=== PATIENT | male | born 1970 | race African-American/Black ===

== ENCOUNTER 2024-09-17 00:37 | Day surgery (SDC) | payer OTHER, SELFPAY ==
[2024-09-04 12:18] VITALS: BMI 35.9
[2024-09-17 10:22] VITALS: BP 142/87; PULSE 72; RESP 20; TEMP 36; O2SAT 99; BMI 36.3
--- NOTE | 2024-09-17 10:22 | WPDANESEPPF ---
Anes - Initial Pre Proc Eval Procedure: Operation Date: 09/17/24 11:30 Proposed Procedures p Screening Colonoscopy - Ben Frausto MD Date/Time: 09/17/24 10:22 Surgeon: Ben Frausto MD Pre Op Diagnosis: Encounter for screening for malignant neoplasm of Patient Data Age: 53 Gender: M Height: 1.78 m Weight: 113.4 kg Allergies Allergy/AdvReac Type Severity Reaction Status Date / Time No Known Allergies Allergy Verified 09/17/24 10:21 Home Medications ?Medication ?Instructions ?Recorded ?Confirmed ?Type atorvastatin 20 mg tablet 20 mg PO QPM 09/04/24 09/17/24 History bictegravir 50 mg-emtricitabine 1 tablet PO DAILY 09/04/24 09/17/24 History 200 mg-tenofovir alafenam 25 mg tablet (Biktarvy) lisinopril 20 mg tablet 20 mg PO DAILY 09/04/24 09/17/24 History naproxen 500 mg tablet 500 mg PO Q12H 09/04/24 09/17/24 History Patient hx anesthesia problems: none Family hx anesthesia problems: none Results Review: All pre-operative results and documents have been reviewed as part of the pre-operative evaluation. [facility] Past Medical History Medical History (Updated 09/17/24 @ 10:22 by Orion Taylor MD) Obesity Hyperlipidemia HTN (hypertension) Social History Social History Smoking packs per day: 2 Smoking cigarettes per day: 40.0 Years smoked: 15 Smoking pack-years: 30.00 Smoking status: Former smoker Tobacco type: cigarettes Alcohol intake: never Substance use: never Substance use type: does not use Living arrangements: with family Spiritual care concerns: No Anes - Eval Final PreProcedure Day of Procedure 09/17/24 10:22 Patient weight: obese Heart: regular rate and rhythm Lungs: clear to auscultation Airway: Mallampati scale class II Neurological: alert and oriented Last oral intake: >/= 8 hours ASA classification: III Emergent: no Anesthetic plan: proceed Anesthesia type and monitoring: general GIVS and standard monitoring Results Review: All pre-operative results and documents have been reviewed as part of the pre-operative evaluation. Informed Consent: The patient's anesthetic plan and its attendant risks and benefits were discussed with the patient/family/POA. Questions were solicited and answers provided to the satisfaction of the patient/family/POA.
[2024-09-17] MEDS: LACTATED RINGERS 1,000 ML 150 ML IV CONT (10:38)
--- NOTE | 2024-09-17 11:01 | PM.HPGS ---
History of Present Illness History of Present Illness Consent: Risks, benefits, and alternatives have been discussed and questions answered. Patient agrees to proceed with procedure. Chief complaint: Encounter for screening for malignant neoplasm of Narrative: Avery Zuniga is a 53 year old male here for first screening colonoscopy Review of Systems Review of Systems: All systems reviewed & are unremarkable except as noted in HPI and below PMFSH Past Medical History Medical History (Updated 09/17/24 @ 11:02 by Ben Frausto MD) Colon cancer screening Obesity Hyperlipidemia HTN (hypertension) Social History Social History Smoking packs per day: 2 Smoking cigarettes per day: 40.0 Years smoked: 15 Smoking pack-years: 30.00 Smoking status: Former smoker Tobacco type: cigarettes Alcohol intake: never Substance use: never Substance use type: does not use Living arrangements: with family Spiritual care concerns: No Meds Home Medications and Allergies Home Medications ?Medication ?Instructions ?Recorded ?Confirmed ?Type atorvastatin 20 mg tablet 20 mg PO QPM 09/04/24 09/17/24 History bictegravir 50 mg-emtricitabine 1 tablet PO DAILY 09/04/24 09/17/24 History 200 mg-tenofovir alafenam 25 mg tablet (Biktarvy) lisinopril 20 mg tablet 20 mg PO DAILY 09/04/24 09/17/24 History naproxen 500 mg tablet 500 mg PO Q12H 09/04/24 09/17/24 History Allergies Allergy/AdvReac Type Severity Reaction Status Date / Time No Known Allergies Allergy Verified 09/17/24 10:21 Vital Signs Vital Signs - 24 hr 09/17/24 10:22 Temperature 96.8 F L Pulse Rate 72 Respiratory Rate 20 Blood Pressure 142/87 H Pulse Oximetry 99 Oxygen Delivery Room Air Exam Const: General: comfortable and no acute distress HENMT: Face/Nose/Sinus: Normal nares present Eyes: General: appearance normal, both eyes and all related structures Neck: Neck: no JVD Resp: Auscultation: clear to auscultation bilaterally Cardio: Rate: regular rate Rhythm: regular rhythm GI: Inspection: non-distended GI Palp: Yes Soft to palpation Skin: General skin exam: normal color Neuro: General: gait normal Speech: normal speech Extrem: General: normal to inspection Psych: Mental Status: mental status grossly normal Assessment and Plan Assessment and plan (1) Colon cancer screening: Code(s): Z12.11 - Encounter for screening for malignant neoplasm of colon Status: Acute Assessment and Plan: colonoscopy
[2024-09-17 11:25] VITALS: BP 106/49; PULSE 82; RESP 20; O2SAT 96
[2024-09-17 11:35] VITALS: BP 127/74; PULSE 71; RESP 20; O2SAT 97
== END 2024-09-17 11:52 | disposition home or self-care (01) ==
PROVIDERS: Visit Provider Internal Medicine Gastroenterology
PROC: 0DJD8ZZ Inspection of Lower Intestinal Tract, Via Natural or Artificial Opening Endoscopic (ICD-10-PCS; CPT 45378; principal; 2024-09-17 11:30)
DX: Z12.11 Encounter for screening for malignant neoplasm of colon (principal); K64.8 Other hemorrhoids; E78.5 Hyperlipidemia, unspecified; I10 Essential (primary) hypertension; E66.9 Obesity, unspecified; Z68.36 Body mass index [BMI] 36.0-36.9, adult; Z79.1 Long term (current) use of non-steroidal anti-inflammatories (NSAID); Z98.0 Intestinal bypass and anastomosis status; Z90.49 Acquired absence of other specified parts of digestive tract; Z87.891 Personal history of nicotine dependence
CPT/HCPCS: 45378; J2003; J2704; J7120